=== PATIENT | female | born 1995 | race Caucasian/White ===

== ENCOUNTER 2017-02-18 13:13 | Emergency (ER) | payer SELFPAY ==
[~2017-02-18] VITALS: Ht 149.9 cm; Wt 49.9 kg
[2017-02-18 13:20] VITALS: BP 113/65
--- NOTE | 2017-02-18 13:30 | NUR ---
21/F BIBA FROM HOME FOR SEIZURE TODAY. PATIENT IS AWAKE AND ALERT ON ARRIVAL. NO POST ICTAL. NO INCONTINENCE. PT STATED HAS A HEADACHE. DENIES N/V/D; SKIN IS PINK/WARM/DRY; AAOX4 WITH EVEN AND STEADY GAIT; LUNGS CLEAR BL; HR EVEN AND REGULAR; PATIENT STATES PAIN OF 8/10 AT THIS TIME; VSS; PATIENT POSITIONED FOR COMFORT; HOB ELEVATED; BEDRAILS UP X2; BED DOWN. ER MD MADE AWARE OF PT STATUS.
--- NOTE | 2017-02-18 14:00 | NUR ---
Patient appears to be resting comfortably in bed. Vital Signs within normal limits. Respirations even and unlabored.WILL CONTINUE TO MONITOR
[2017-02-18 14:13] LABS: BASOPHILS # (AUTO) 0.3 K/uL (0.00-0.22); EOSINOPHILS # (AUTO) 0.1 K/uL (0-0.4); EOSINOPHILS % (AUTO) 2.1 % (0.0-4.0); HEMATOCRIT 40.8 % (36-48); HEMOGLOBIN 13.9 g/dL (12.0-16.0); LYMPHOCYTES # (AUTO) 1.7 K/uL (2.5-16.5); LYMPHOCYTES % (AUTO) 26.1 % (20.5-51.1); MEAN CORPUSCULAR HEMOGLOBIN 30 pg (27-31); MEAN CORPUSCULAR HGB CONC 34 g/dL (33-37); MEAN CORPUSCULAR VOLUME 89 fL (80-94); MONOCYTES # (AUTO) 0.5 K/uL (0.8-1.0); MONOCYTES % (AUTO) 6.8 % (1.7-9.3); PLATELET COUNT (AUTO) 281 K/uL (140-450); WHITE BLOOD COUNT (AUTO) 6.6 K/uL (4.5-11.0)
[2017-02-18 14:24] LABS: ANION GAP 11.3 (8-16); CALCIUM 8.9 mg/dL (8.5-10.1); CARBON DIOXIDE 26.9 mmol/L (21-32); CREATININE 0.6 mg/dL (0.6-1.3); POTASSIUM 4.2 mmol/L (3.5-5.1)
[2017-02-18 14:39] LABS: PHENOBARBITAL < 1 ug/ml (15-40); PHENYTOIN (DILANTIN) < 0.5 ug/ml (10.0-20.0)
[2017-02-18 15:45] VITALS: BP 107/71
--- NOTE | 2017-02-18 15:46 | NUR ---
Patient discharged with v/s stable. Written and verbal after care instructions given and explained. Patient alert, oriented and verbalized understanding of instructions. Ambulatory with steady gait. All questions addressed prior to discharge. ID band removed. Patient advised to follow up with PMD, REFILL ONLY LASTS 10DAYS. PT MADE AWARE. Rx of KEPPRA given. Patient educated on indication of medication including possible reaction and side effects. Opportunity to ask questions provided and answered.
== END 2017-02-18 15:46 | disposition home or self-care (01) ==
LOC: MED 13:13
DX: G40.909 Epilepsy, unspecified, not intractable, without status epilepticus (principal)
CPT/HCPCS: 36415; 70450; 71010; 80048; 80156; 80184; 80185; 85025; 93005; 99285; Q0092

== ENCOUNTER 2017-02-27 11:09 | Inpatient (IN) | payer MEDICAID ==
[~2017-02-27] VITALS: Ht 149.9 cm; Wt 49.5 kg
[2017-02-27 11:09] VITALS: BP 112/72
[2017-02-27] MEDS ORDERED: NACL 0.9% 1,000 ML IV ONE ×3 (11:30→15:30)
[2017-02-27] MEDS ORDERED: IBUPROFEN 600 MG TAB PO ONE (11:40)
[2017-02-27] MEDS ORDERED: ONDANSETRON 4 MG/2 ML VIAL IVP ONE (11:40)
[2017-02-27 11:58] LABS: BASOPHILS # (AUTO) 0.3 K/uL (0.00-0.22); BASOPHILS % (AUTO) 4.1 % (0.0-2.0); EOSINOPHILS # (AUTO) 0.1 K/uL (0-0.4); EOSINOPHILS % (AUTO) 2.2 % (0.0-4.0); HEMATOCRIT 37.9 % (36-48); HEMOGLOBIN 12.8 g/dL (12.0-16.0); LYMPHOCYTES # (AUTO) 2.3 K/uL (2.5-16.5); MEAN CORPUSCULAR HEMOGLOBIN 30 pg (27-31); MEAN CORPUSCULAR HGB CONC 34 g/dL (33-37); MEAN CORPUSCULAR VOLUME 89 fL (80-94); MONOCYTES # (AUTO) 0.5 K/uL (0.8-1.0); MONOCYTES % (AUTO) 7.2 % (1.7-9.3); NEUTROPHILS # (AUTO) 3.3 K/uL (1.8-7.7); NEUTROPHILS % (AUTO) 51.5 % (42.2-75.2); PLATELET COUNT (AUTO) 285 K/uL (140-450); RED BLOOD CELL COUNT(AUTO) 4.26 MIL/uL (4.20-5.40); RED CELL DISTRIBUTION WIDTH 12.3 % (11.6-13.7); WHITE BLOOD COUNT (AUTO) 6.5 K/uL (4.5-11.0)
[2017-02-27] MEDS ORDERED: levETIRAcetam 1,000 MG in NACL 0.9% 100 ML IV SCH (12:13)
--- NOTE | 2017-02-27 12:13 | NUR ---
CALLED PHARMACY FOR IVANNA ORDERED BY ER MD DR. ANSARI; PHARMACY TO BRING MEDICATION.
--- NOTE | 2017-02-27 12:15 | NUR ---
[facility] HAV[facility] WITNESSED SEIZURE LASTING APPROXIMATELY 60-90 SECONDS IN THE CAR; PER [facility], PT USUALLY TAKES KEPRA, BUT MISSED A DOSE TODAY; PT AA&OX4 ON ARRIVAL; HX: SEIZURE; RX: DENIES N/V/D; SKIN IS PINK/WARM/DRY; AAOX4 WITH EVEN AND STEADY GAIT; LUNGS CLEAR BL; HR EVEN AND REGULAR; PT DENIES ANY FEVER, CP, SOB, OR COUGH AT THIS TIME; PATIENT STATES PAIN OF 7/10 HEADACHE AT THIS TIME; PATIENT POSITIONED FOR COMFORT; HOB ELEVATED; BEDRAILS UP X2; BED DOWN.
[2017-02-27 12:16] LABS: ANION GAP 14.5 (8-16); CALCIUM 8.3 mg/dL (8.5-10.1); CARBON DIOXIDE 25.2 mmol/L (21-32); CREATININE 0.6 mg/dL (0.6-1.3); POTASSIUM 3.7 mmol/L (3.5-5.1)
--- NOTE | 2017-02-27 12:16 | NUR ---
BOYFRIEND AND CHILD AT BEDSIDE, PT AAO, C/O HEADACHE, PT WILLING TO GIVE URINE, SKIN WARM TO TOUCH RESP. EVEN AND UNLABORED,
[2017-02-27 12:23] LABS: ALBUMIN 3.5 g/dL (3.4-5.0); TOTAL BILIRUBIN 0.2 mg/dL (0.0-1.0); TOTAL PROTEIN, SERUM 6.9 g/dL (6.4-8.2)
[2017-02-27] MEDS ORDERED: METOCLOPRAMIDE 10 MG/2 ML INJ VIAL IVP ONE (13:00)
--- NOTE | 2017-02-27 13:32 | NUR ---
RELAYED TO DR. ANSARI RESULT OF URINE DIPSTICK AND
--- NOTE | 2017-02-27 13:39 | NUR ---
PT TAKEN TO CT VIA [facility] ACCOMPANIED BY [facility] BI ADMINISTRATOR.
--- NOTE | 2017-02-27 13:51 | NUR ---
PT BACK FROM CT
[2017-02-27] MEDS ORDERED: oxyCODONE/APAP 5/325 MG 1 TAB TAB PO ONE (14:05)
--- NOTE | 2017-02-27 14:05 | NUR ---
DR. ANSARI AT BEDSIDE
[2017-02-27 14:25] LABS: APPEARANCE,URINE CLEAR (CLEAR); BILIRUBIN,URINE NEGATIVE (NEGATIVE); BLOOD, URINE NEGATIVE (NEGATIVE); COLOR,URINE YELLOW (YELLOW); LEUKOCYTE ESTERASE ,URINE 1+ (NEGATIVE); NITRITE, URINE NEGATIVE (NEGATIVE); PROTEIN,URINE NEGATIVE (NEGATIVE); UGLUCOSE NEGATIVE (NEGATIVE); UROBILINOGEN,URINE 0.2 EU/dL (0.2 - 1)
[2017-02-27 14:39] LABS: RBC,URINE 0-3 /HPF (0-5)
[2017-02-27 14:40] LABS: BACTERIA,URINE FEW /HPF (None Seen)
--- NOTE | 2017-02-27 14:50 | NUR ---
Patient appears to be resting comfortably in bed. P 83,BP 88/59,R16 . NOTIFIED ER MD DR CARTER. IV FLUID 0.9% NSS 1000 ML WIDE OPEN ORDERED .
--- NOTE | 2017-02-27 15:46 | NUR ---
PT AAO X4 ,PT TAKEN TO REST ROOM VIA W/C.
--- NOTE | 2017-02-27 15:54 | NUR ---
PT AAOX4;STATED F" I FEELS TIRED& HEADACHE 5/10.
[2017-02-27] MEDS: NACL 0.9% 1,000 ML IV SCH (16:01)
[2017-02-27] MEDS ORDERED: MORPHINE SULFATE 2 MG/ML SYR IVP PRN (16:05)
[2017-02-27] MEDS ORDERED: HYDROcodone/APAP 7.5/325 MG 1 TAB PO PRN (16:05)
[2017-02-27] MEDS ORDERED: ONDANSETRON 4 MG/2 ML VIAL IM/IVP PRN (16:05)
[2017-02-27] MEDS ORDERED: ACETAMINOPHEN 325 MG TAB PO PRN (16:05)
[2017-02-27] MEDS ORDERED: DOCUSATE SODIUM 100 MG GELCAP PO PRN (16:05)
--- NOTE | 2017-02-27 16:08 | NUR ---
finished iv 0.9%NSS 1000 ML .BP 80/40 .NOTIFIED MD ROS HERNANDEZ. AWAREPatient appears to be resting comfortably in bed. Respirations even and unlabored.
--- NOTE | 2017-02-27 16:29 | NUR ---
GAVE REPORT TO CASEY SARABIA
[2017-02-27 16:38] VITALS: BP 93/62
--- NOTE | 2017-02-27 16:38 | NUR ---
PT ARRIVED ON UNIT ON [facility]. PT IS AOX4 AND SHOWS NO S/S OF DISTRESS ON ROOM AIR. PT AMB WITH STEADY GAIT TO VOID. PT IS NOW IN BED LOWERED WITH CALL LIGHT WITHIN REACH.
[2017-02-27 17:51] LABS: INR 1.1 (0.8-1.2); PARTIAL THROMBOPLASTIN TIME 24.4 secs (22-35.6); PROTHROMBIN TIME 10.3 secs (10.8-13.4)
[2017-02-27 18:01] LABS: CHOL/HDL RATIO 2.3 (1-4.5); FREE T4 (FREE THYROXINE) 1.17 ng/dL (0.76-1.46); MAGNESIUM 1.7 mg/dL (1.8-2.4); PHOSPHORUS 2.4 mg/dL (2.5-4.9); THYROID STIMULATING HORMONE 3.09 uIU/mL (0.34-3.76)
--- NOTE | 2017-02-27 18:30 | NUR ---
PT FAMILY IS AT BEDSIDE. PT HAS NOTED IV ON THE L WRIST. SKIN IS INTACT. PT DENIES PAIN OR SOB. PT IS AAOX4 AND SHOWS NO S/S OF DISTRESS ON ROOM AIR.
--- NOTE | 2017-02-27 19:20 | NUR ---
GAVE PT REPORT AT BEDSIDE. PT ENDORSED IN STABLE CONDITION.
--- NOTE | 2017-02-27 19:30 | NUR ---
RECEIVED REPORT FROM DAY RN AT BEDSIDE, PATIENT AAOX4 ON ROOM AIR, NO SOB OR SIGN OF DISTRESS AT THIS TIME, IV TO LW PATENT AND INTACT, PATIENT DENIES PAIN AT THIS TIME, SEIZURE PRECAUTIONS IN PLACE WITH PADS ON SIDE RAILS, SKIN INTACT, DISCUSSED PLAN OF CARE WITH PATIENT, PATIENT VERBALIZED UNDERSTANDING, SAFETY MEASURES CHECKED, CALL LIGHT WITHIN REACH. WILL CONTINUE TO MONITOR. FAMILY AT BEDSIDE.
[2017-02-27] MEDS ORDERED: MECLIZINE 25 MG TAB PO PRN (19:50)
[2017-02-27 20:00] VITALS: BP 94/59
[2017-02-27 21:34] LABS: AMPHETAMINE, URINE NEG. ng/ml (NEG <=1000); BARBITURATE, URINE NEG. ng/ml (NEG <=200); BENZODIAZEPINE, URINE NEG. ng/mL (NEG <=200); CANNABINOID, URINE NEG. ng/mL (NEG <=50); COCAINE, URINE NEG. ng/mL (NEG <=300); OPIATE, URINE NEG. ng/mL (NEG <=2000); PHENCYCLIDINE SCREEN,URINE NEG. ng/mL (NEG <=25)
--- NOTE | 2017-02-27 22:56 | NUR ---
PATIENT SLEEPING, NO SIGN OF DISTRESS, CALL LIGHT WITHIN REACH. WILL CONTINUE TO MONITOR
[2017-02-28] VITALS: BP 100/66
--- NOTE | 2017-02-28 00:27 | NUR ---
VITAL SIGNS STABLE, NO SIGN OF DISTRESS, CALL LIGHT WITHIN REACH. WILL CONTINUE TO MONITOR
[2017-02-28] MEDS: levETIRAcetam 500 MG TAB PO SCH ×3 (02:19→20:33)
--- NOTE | 2017-02-28 02:24 | NUR ---
PATIENT AWAKE ON PHONE, ORDERED KEPPRA, MAG-OX AND NEUTRA-PHOS ADMINISTERED PER MD ORDER, PATIENT TOLERATED WELL, NO SIGN OF DISTRESS, CALL LIGHT WITHIN REACH. WILL CONTINUE TO MONITOR.
[2017-02-28] MEDS ORDERED: SODIUM PHOS / POTASSIUM PHOS 1 PKT PDR PO SCH (03:00)
[2017-02-28] MEDS ORDERED: MAGNESIUM OXIDE 400 MG TAB PO SCH (03:00)
[2017-02-28 04:00] VITALS: BP 104/69
--- NOTE | 2017-02-28 04:00 | NUR ---
PATIENT RESTING IN BED AWAKE, VITAL SIGNS STABLE, NO SIGN OF DISTRESS, CALL LIGHT WITHIN REACH. WILL CONTINUE TO MONITOR
[2017-02-28 06:41] LABS: HEMATOCRIT 35.3 % (36-48); HEMOGLOBIN 11.8 g/dL (12.0-16.0); MEAN CORPUSCULAR HEMOGLOBIN 30 pg (27-31); MEAN CORPUSCULAR HGB CONC 33 g/dL (33-37); MEAN CORPUSCULAR VOLUME 91 fL (80-94); PLATELET COUNT (AUTO) 255 K/uL (140-450); RED BLOOD CELL COUNT(AUTO) 3.88 MIL/uL (4.20-5.40); RED CELL DISTRIBUTION WIDTH 12.5 % (11.6-13.7)
[2017-02-28 06:45] LABS: ANION GAP 8.9 (8-16); CALCIUM 7.7 mg/dL (8.5-10.1); CARBON DIOXIDE 25.8 mmol/L (21-32); CREATININE 0.5 mg/dL (0.6-1.3); POTASSIUM 3.7 mmol/L (3.5-5.1)
[2017-02-28 06:48] LABS: MAGNESIUM 1.6 mg/dL (1.8-2.4); PHOSPHORUS 3.8 mg/dL (2.5-4.9)
[2017-02-28 06:49] LABS: BASOPHILS % (MANUAL) 1 % (0-2); EOSINOPHILS % (MANUAL) 1 % (0-4); LYMPHOCYTES % (MANUAL) 55 % (20-46); MONOCYTES % (MANUAL) 11 % (5-12); NEUTROPHILS % (MANUAL) 32 (43-65)
--- NOTE | 2017-02-28 06:51 | NUR ---
PATIENT HAS BEEN SCREENED AND CATEGORIZED LOW NUTRITION RISK. PATIENT WILL BE SEEN WITHIN 7 DAYS OF ADMISSION. 03/06/17 JOSE SEVILLA MS, RDN
[2017-02-28] MEDS: NACL 0.9% 1,000 ML IV SCH ×2 (07:01→18:25)
--- NOTE | 2017-02-28 07:30 | NUR ---
ENDORSED PATIENT TO DAY RN AT BEDSIDE, PATIENT IN STABLE CONDITION
--- NOTE | 2017-02-28 07:31 | NUR ---
PT ALERT AND ORIENTED X4. NO SIGNS OF ACUTE DISTRESS. BREATHING EVENLY AND UNLABORED. NO SIGNS OF ANY BOWEL/BLADDER DISCOMFORT, DENIES OF ANY PAIN OR DISCOMFORT. NO EPISODES OF SEIZURES NOTED AT THIS TIME, ALL NEEDS ATTENDED, SEIZURE WITH SAFETY PRECAUTIONS MAINTAINED. CALL LIGHT WITHIN REACH.
[2017-02-28 07:54] VITALS: BP 110/63
[2017-02-28] MEDS: MAG SULF 2000 MG/WATER PREMIX 100 ML IV SCH ×2 (09:56→11:46)
[2017-02-28 11:56] VITALS: BP 111/59
[2017-02-28 13:51] LABS: T4 (THYROXINE) 8.1 ug/dL (4.5 - 12.0)
--- NOTE | 2017-02-28 14:02 | NUR ---
RECEIVED ORDER FROM DR. TAYLOR TO OBTAIN MEDICAL RECORDS FROM [facility], CONSENT OBTAINED FROM THE PT AND FAXED MEDICAL RECORDS FROM [facility] [phone]. WILL F/U.
[2017-02-28 16:00] VITALS: BP 103/64
--- NOTE | 2017-02-28 18:20 | NUR ---
PT RESTING WELL, NO SIGNS OF ACUTE DISTRESS. WILL ENDORSE TO ONCOMING COLD MEAT CHEF NURSE FOR CONTINUITY OF CARE.
--- NOTE | 2017-02-28 19:30 | NUR ---
RECEIVED REPORT FROM DAY RN FOR CONTINUITY OF CARE. PATIENT IS A&OX4, DISCUSSED PLAN OF CARE WITH PATIENT, VERBALIZED UNDERSTANDING. SHIFT ASSESSMENT DONE, VS TAKEN, STABLE. NO S/S OF RESPIRATORY DISTRESS NOTED ON ROOM AIR. PATIENT DENIES PAIN. IV TO LT WRIST PATENT AND INFUSING FLUIDS WELL. SAFETY/SEIZURE PRECAUTIONS ENFORCED. CALL LIGHT WITHIN REACH. WILL CONTINUE TO MONITOR.
[2017-02-28 20:00] VITALS: BP 115/68
--- NOTE | 2017-02-28 20:33 | NUR ---
DUE MEDICATIONS ADMINISTERED, TOLERATED WELL. PATIENT EATING DINNER, NO S/S OF DISTRESS OR DISCOMFORT NOTED. WILL CONTINUE TO MONITOR.
--- NOTE | 2017-02-28 22:14 | NUR ---
PATIENT RESTING IN BED, NO S/S OF DISTRESS OR DISCOMFORT NOTED, WILL CONTINUE TO MONITOR.
--- NOTE | 2017-02-28 23:52 | NUR ---
VITAL SIGNS STABLE AT THIS TIME. PATIENT NOW SLEEPING NO S/S OF DISTRESS OR DISCOMFORT. CALL LIGHT WITHIN REACH.
[2017-03-01] VITALS: BP 94/54
--- NOTE | 2017-03-01 01:49 | NUR ---
PATIENT SLEEPING AT THIS TIME, NO S/S OF DISTRESS OR DISCOMFORT NOTED. CALL LIGHT WITHIN REACH.
[2017-03-01 04:00] VITALS: BP 112/56
--- NOTE | 2017-03-01 04:00 | NUR ---
VITAL SIGNS STABLE AT THIS TIME. PATIENT SLEEPING, NO S/S OFF DISTRESS OR DISCOMFORT NOTED.
--- NOTE | 2017-03-01 05:58 | NUR ---
PATIENT SLEEPING AT THIS TIME, NO S/S OF DISTRESS OR DISCOMFORT. CALL LIGHT WITHIN REACH.
[2017-03-01] MEDS: NACL 0.9% 1,000 ML IV SCH (06:22)
--- NOTE | 2017-03-01 07:15 | NUR ---
RECEIVED PATIENT REPORT AT BEDSIDE. PATIENT ASLEEP BUT EASILY AROUSABLE. NO S/S OF DISTRESS NOTED. NO C/O PAIN. SEIZURE PRECAUTION IN PLACE. PATIENT ON TELE MONITORING. BED LOWERED WITH CALL LIGHT WITHIN. WILL CONTINUE TO MONITOR
--- NOTE | 2017-03-01 07:30 | NUR ---
ENDORSED PATIENT TO DAY RN FOR CONTINUITY OF CARE, PATIENT IS IN STABLE CONDITION.
[2017-03-01 08:00] VITALS: BP 91/56
[2017-03-01] MEDS: levETIRAcetam 500 MG TAB PO SCH (08:28)
--- NOTE | 2017-03-01 10:00 | NUR ---
PATIENT ASLEEP IN BED. NO S/S OF DISTRESS NOTED
[2017-03-01 12:00] VITALS: BP 90/52
[2017-03-01] MEDS ORDERED: MAG SULF 2000 MG/WATER PREMIX 100 ML IV SCH (13:53)
[2017-03-01] MEDS ORDERED: MAG SULF 2000 MG/WATER PREMIX 50 ML IV SCH (13:56)
--- NOTE | 2017-03-01 15:30 | NUR ---
FAMILY MEMBER PRESENT AT BEDSIDE. PATIENT IN BED. WATCHING TELEVISION. NO S/S OF DISTRESS NOTED
[2017-03-01 16:00] VITALS: BP 101/63
[2017-03-01] MEDS ORDERED: KEP500 PO (16:40)
--- NOTE | 2017-03-01 18:15 | NUR ---
PATIENT DISCHARGED TO HOME. DISCHARGE INSTRUCTIONS AND DISCHARGE PRESCRIPTIONS GIVEN. PATIENT VERBALIZED UNDERSTANDING. IV LINE DISCONTINUED. PATIENT SIGNED ALL OF HER DISCHARGE PAPERS. PATIENT LEFT WITH ALL HER BELONGINGS AND DISCHARGE PAPERS. PATIENT LEFT IN STABLE CONDITION.
[2017-03-02 16:06] LABS: HEMOGLOBIN A1C 5.4 % (4.8-5.6)
== END 2017-03-01 18:15 | disposition home or self-care (01) | DRG 53 ==
LOC: MED 11:09 → MTU 16:05
PROVIDERS: ADMIT Family Medicine; ATTEND Family Medicine
DX: G40.A09 Absence epileptic syndrome, not intractable, without status epilepticus (principal); I95.9 Hypotension, unspecified; N39.0 Urinary tract infection, site not specified; E83.42 Hypomagnesemia; E83.39 Other disorders of phosphorus metabolism; G90.9 Disorder of the autonomic nervous system, unspecified; Z53.20 Procedure and treatment not carried out because of patient's decision for unspecified reasons; E11.9 Type 2 diabetes mellitus without complications
CPT/HCPCS: 36415; 70450; 80048; 80053; 80173; 80305; 81001; 82150; 83036; 83690; 83735; 83880; 84100; 84436; 84439; 84443; 84479; 84484; 85025; 85610; 85730; 87081; 87086; 93005; 93880; 96361; 96365; 96375; 99285; J1953; J2405; J2765; J3475; J7030; Q0092

== ENCOUNTER 2021-07-12 16:45 | Emergency (ER) | payer OTHER ==
[~2021-07-12] VITALS: Ht 149.9 cm; Wt 53.1 kg
[~2021-07-12 16:45] MED LIST: KEP500 PO
[2021-07-12 16:57] VITALS: BP 107/58
--- NOTE | 2021-07-12 18:45 | NUR ---
PT AMBULATED TO BED
--- NOTE | 2021-07-12 19:15 | NUR ---
25 YO F BIB SELF WITH C/C OF EPIGASTRIC SHARP PAIN 05/31 X1 1/2 WEEKS. PER PT PAIN RADIATES TO LOWER ABD, PAIN COMES AND GOES. EPIGASTRIC PAIN IS CONSTANT, LOWER ABD PAIN COMES AND GOES. PT STATES SHE TOOK TYLENOL WHEN PAIN BEGAN BUT DID NOT HAVE RELIEF. PT REPORTS CHANGES IN URINATION- DECREASED OUTPUT AND INCR FREQUENCY. LAST BM WAS 07/10, PT STATES IT WAS NOT NORMAL, SHE USUALLY GOES EVERY DAY. ABD IS SOFT AND FLAT, BOWEL SOUNDS X4 QUADS DECREASED. PT IS IN GOWN. BED LOCKED IN LOWEST POSITION, SIDE RAILS X1. ALL NEEDS MET AT THIS TIME. SEIZURE PADS IN PLACE HX:EPILEPSY RX: KEPPRA (HAS BEEN OFF MEDS FOR 1YR) TAKES WHEN SHE FEELS ONE COMING DENIES ALLERG LMP:06/29/21
--- NOTE | 2021-07-12 19:35 | NUR ---
PT AMULATED TO RR AND BACK TO BED WITH STEADY GAIT.
[2021-07-12] MEDS ORDERED: FAMOTIDINE 20 MG TAB PO ONE (19:40)
[2021-07-12] MEDS ORDERED: DICYCLOMINE HCL LIQUID 20 MG, ALUMINUM HYD/MAG/SIMETHICONE 30 ML, LIDOCAINE VISCOUS 2% ... PO ONE ×3 (19:40)
[2021-07-12] MEDS ORDERED: DICYCLOMINE HCL LIQUID 10 MG/5 ML UDC ONE (19:42)
[2021-07-12] MEDS ORDERED: ALUMINUM HYD/MAG/SIMETHICONE 30 ML UDC ONE (19:42)
[2021-07-12 19:58] LABS: BASOPHILS % (AUTO) 0.5 % (0.0-2.0); EOSINOPHILS # (AUTO) 0.1 K/uL (0-0.4); EOSINOPHILS % (AUTO) 1.6 % (0.0-4.0); HEMATOCRIT 38.7 % (36-48); HEMOGLOBIN 12.7 g/dL (12.0-16.0); LYMPHOCYTES # (AUTO) 3.4 K/uL (2.5-16.5); LYMPHOCYTES % (AUTO) 42.6 % (20.5-51.1); MEAN CORPUSCULAR HEMOGLOBIN 30 pg (27-31); MEAN CORPUSCULAR HGB CONC 33 g/dL (33-37); MEAN CORPUSCULAR VOLUME 89.8 fL (80-94); MONOCYTES # (AUTO) 0.8 K/uL (0.8-1.0); MONOCYTES % (AUTO) 9.3 % (1.7-9.3); NEUTROPHILS # (AUTO) 3.7 K/uL (1.8-7.7); PLATELET COUNT (AUTO) 323 K/uL (140-450); RED BLOOD CELL COUNT(AUTO) 4.31 MIL/uL (4.20-5.40); RED CELL DISTRIBUTION WIDTH 13.7 % (11.6-13.7); WHITE BLOOD COUNT (AUTO) 8.1 K/uL (4.8-10.8)
[2021-07-12 20:18] LABS: ALBUMIN 3.6 g/dL (3.4-5.0); ANION GAP 11.9 (8-16); CARBON DIOXIDE 26.8 mmol/L (21-32); CREATININE 0.6 mg/dL (0.6-1.3); POTASSIUM 3.7 mmol/L (3.5-5.1); TOTAL BILIRUBIN 0.2 mg/dL (0.0-1.0)
--- NOTE | 2021-07-12 20:22 | NUR ---
PT AMBULATED TO AND BACK TO BED.
[2021-07-12] MEDS ORDERED: FAMO-90 PO (22:01)
[2021-07-12 22:13] VITALS: BP 110/70
--- NOTE | 2021-07-12 22:13 | NUR ---
Patient discharged with v/s stable. Written and verbal after care instructions given and explained. Patient verbalized understanding. Ambulatory with steady gait. All questions addressed prior to discharge. Advised to follow up with PMD.
== END 2021-07-12 22:13 | disposition home or self-care (01) ==
LOC: MED 16:45
DX: R10.13 Epigastric pain (principal); K21.9 Gastro-esophageal reflux disease without esophagitis; Z79.899 Other long term (current) drug therapy
CPT/HCPCS: 36415; 80053; 81002; 81025; 83690; 85025; 99285

== ENCOUNTER 2021-08-30 03:48 | Emergency (ER) | payer OTHER ==
[~2021-08-30] VITALS: Ht 149.9 cm; Wt 53.1 kg
[~2021-08-30 03:48] MED LIST changes: +FAMO-90 PO
[2021-08-30 03:50] VITALS: BP 106/63
[2021-08-30] MEDS ORDERED: PHEN-1877 PO (05:03)
[2021-08-30] MEDS ORDERED: NITR100C7 PO (05:03)
[2021-08-30 05:15] VITALS: BP 106/63
[2021-08-30 05:26] LABS: APPEARANCE,URINE CLEAR (CLEAR); BILIRUBIN,URINE 1+ (NEGATIVE); BLOOD, URINE 3+ (NEGATIVE); COLOR,URINE RED (YELLOW); LEUKOCYTE ESTERASE ,URINE TRACE (NEGATIVE); NITRITE, URINE NEGATIVE (NEGATIVE); UGLUCOSE NEGATIVE (NEGATIVE)
[2021-08-30 06:01] LABS: RBC,URINE TOO NUMEROUS TO COUN /HPF (0-5); WBC,URINE 0-5 /HPF (0-5)
== END 2021-08-30 05:06 | disposition home or self-care (01) ==
LOC: MED 03:48
DX: O23.11 Infections of bladder in pregnancy, first trimester (principal); Z3A.01 Less than 8 weeks gestation of pregnancy; Z79.899 Other long term (current) drug therapy
CPT/HCPCS: 81001; 81025; 87086; 99283